=== PATIENT | male | born 1960 | race Caucasian/White ===

== ENCOUNTER 2017-02-11 17:28 | Emergency (ER) | payer BC ==
[2017-02-11] MEDS ORDERED: Morphine INJ* 4 MG/ML 1 ML SYRINGE IV ONE (19:02)
[2017-02-11] MEDS ORDERED: NS 0.9% 1000 ML* 2,000 ML IV ONE (19:02)
[2017-02-11] MEDS ORDERED: Ondansetron INJ* 2 MG/ML VIAL IV ONE (19:02)
[2017-02-11 19:21] LABS: Hematocrit 46 % (42-52); Hemoglobin 15.5 g/dl (14.0-18.0); Mean Corpuscular HGB Conc 34 g/dl (31-36); Mean Corpuscular Hemoglobin 31 pg (27-31); Mean Corpuscular Volume 93 fL (80-94); Mean Platelet Volume 9 um3 (7.4-10.4); Red Blood Count 4.99 10^6/ul (4.0-5.4); Red Cell Distribution Width 13 % (10.5-15); White Blood Count 9.6 10^3/ul (3.5-10.8)
[2017-02-11 19:32] LABS: Albumin 4.2 g/dL (3.2-5.2); BUN/Creatinine Ratio 17.6 (8-20); C Reactive Protein 2.45 mg/L (< 5.00); Calcium 9.3 mg/dL (8.6-10.3); EGFR African American 96.8 (>60); EGFR Non-African American 75.3 (>60); Globulin 3.2 g/dL (2-4); Magnesium 1.8 mg/dL (1.9-2.7); Potassium 3.9 mmol/L (3.5-5.0); Total Bilirubin 0.7 mg/dL (0.2-1.0); Total Protein 7.4 g/dL (6.4-8.9)
[2017-02-11] MEDS ORDERED: Iohexol 300* (CONTRAST) 10 ML SDV IV ONE (19:48)
--- NOTE | 2017-02-11 21:47 | RAD ---
Indication: Abdominal pain, appendicitis, status post sleeve gastrectomy. Contrast: Administered 102.0 ml of Contrast -- mgi/ml CT of the abdomen and pelvis was performed after oral and IV contrast administration. Coronal and sagittal reconstructed images were obtained. The lung bases demonstrate no pleural fluid, nodules or masses. Heart is of normal size without evidence of pericardial effusion. The liver is normal in size. There are no focal lesions or intrahepatic duct dilatation noted. The gallbladder is distended. No pericholecystic fluid or wall thickening is identified. The pancreas demonstrates no mass or pancreatic duct dilatation. The spleen is normal in size. Patient status post gastrectomy. No adrenal lesions are noted. The kidneys demonstrate symmetric nephrograms without focal lesions. No hydronephrosis is noted. No retroperitoneal lymphadenopathy is noted. No dilated small bowel are noted. There is contrast in the right colon with no evidence of bowel obstruction. There is focal wall thickening of the distal ileum. There is suggestion of mucosal edema in the possibility of inflammatory bowel disease should BE considered. A small amount of ascites is noted. No hernias are noted. The urinary bladder is otherwise unremarkable. The prostate and seminal vesicles are unremarkable. IMPRESSION: A SMALL AMOUNT OF ASCITES AND MESENTERIC EDEMA IS NOTED. THERE IS MUCOSAL THICKENING IN THE DISTAL ILEUM. THE POSSIBILITY OF INFLAMMATORY BOWEL DISEASE SHOULD BE CONSIDERED. OTHER CAUSES OF ILEITIS ARE NOT TOTALLY EXCLUDED. NO ABSCESS IS IDENTIFIED. APPENDIX IS NORMAL.
[2017-02-11] MEDS ORDERED: metroNIDAZOLE TAB* 250 MG PO ONE ×2 (22:03→22:07)
[2017-02-11] MEDS ORDERED: Ciprofloxacin TAB* 500 MG PO ONE ×2 (22:03→22:06)
--- NOTE | 2017-02-11 22:28 | ED ---
Christine Russ Alok, scribed for Cl Ramos MD on 02/11/17 at 1927 . Abdominal Pain/Male - HPI Summary HPI Summary: 57 y/o male presents to the ED for abd pain since 1430 today. Pt states that pain which began while at work intensified significantly while driving and was described as sharp located around the epigastric region. Pt states he attempted to dry heave but could not produce emesis. Pt also noted dizziness with accompanied visual changes, "seeing stars" while standing as well as subjective fever/chills. Currently, pt states that his abd pain is still present but has improved somewhat with rest. Pt notes lower back pain but is similar to baseline. Pt has has nasal congestion for the last week. Pt denies CP, SOB, tobacco use or any hx of abd surgery. Pt drinks ETOH rarely. - History of Current Complaint Chief Complaint: EDAbdPain Stated Complaint: ABD PAIN Time Seen by Provider: 02/11/17 18:46 Hx Obtained From: Patient Onset/Duration: Gradual Onset, Lasting Hours, Still Present Timing: Constant, Lasting Hours Severity Initially: Moderate Severity Currently: Moderate Pain Intensity: 6 Pain Scale Used: 0-10 Numeric Location: Epigastric Radiates: No Character: Sharp Aggravating Factor(s): Movement Alleviating Factor(s): Position Associated Signs And Symptoms: Positive: Fever, Dizzy, Back Pain, Nausea. Negative: Chest Pain - Allergies/Home Medications Allergies/Adverse Reactions: Allergies Allergy/AdvReac Type Severity Reaction Status Date / Time No Known Allergies Allergy Verified 02/11/17 17:41 PMH/Surg Hx/FS Hx/Imm Hx Cardiovascular History: Denies: Other Cardiovascular Problems/Disorders Respiratory History: Reports: Hx Sleep Apnea GI History: Denies: Other GI Disorders History: Reports: Other Problems/Disorders - prostate cancer Sensory History: Reports: Hx Contacts or Glasses Denies: Hx Hearing Aid Opthamlomology History: Reports: Hx Contacts or Glasses - Cancer History Cancer Type, Location and Year: prostate 2009 Hx Radiation Therapy: Yes - Surgical History Surgery Procedure, Year, and Place: TESTICULAR A CHILD, [facility] Hx Anesthesia Reactions: No - Immunization History Date of Tetanus Vaccine: utd Date of Influenza Vaccine: utd Infectious Disease History: No Infectious Disease History: Denies: Traveled Outside the [place] in Last 30 Days - Family History Known Family History: Positive: Other - No- Maligant hypothermia. No- Anestesia reaction - Social History Occupation: Employed Full-time Alcohol Use: Occasionally Substance Use Type: Reports: Marijuana Substance Use Comment - Amount & Last Used: within the week Smoking Status (MU): Former Smoker Have You Smoked in the Last Year: No Review of Systems Positive: Fever, Chills, Skin Diaphoresis Positive: Nasal Discharge Negative: Chest Pain Negative: Shortness Of Breath Positive: Abdominal Pain, Nausea Positive: Other - Lower back pain Neurological: Other - Dizziness All Other Systems Reviewed And Are Negative: Yes Physical Exam - Summary Physical Exam Summary: The patient is well-nourished in mild distress and in no acute pain. The skin is diaphoretic and warm to touch. Skin color reflects adequate perfusion. Decreased capillary refill. HEENT: The head is normocephalic and atraumatic. The pupils are equal and reactive. The conjunctivae are clear and without drainage. Eyes clear to sclera. Nares are patent and without drainage. Mouth reveals dry mucous membranes and the throat is without erythema and exudate. The external ears are intact. The ear canals are patent and without drainage. The tympanic membranes are intact. Neck is supple with full range of motion and non-tender. There are no carotid bruits. There is no neck vein distension. Respiratory: Chest is non-tender. Lungs are clear to auscultation and breath sounds are symmetrical and equal. Cardiovascular: Hear is regular rate and rhythm. There is no murmur or rub auscultated. There is no peripheral edema and pulses are symmetrical and equal. Abdomen: The abdomen is soft with right sided tenderness to palpation. There are hyperactive bowel sounds heard in all four quadrants and there is no organomegaly palpated. Musculoskeletal: There is no back pain noted. Extremities are non-tender with full range of motion. There is good capillary refill. There is no peripheral edema or calf tenderness elicited. Neurological: Patient is alert and oriented to person, place and time. The patient has symmetrical motor strength in all four extremities. Cranial nerves are grossly intact. Deep tendon reflexes are symmetrical and equal in all four extremities. Psychiatric: The patient has an appropriate affect and does not exhibit any anxiety or depression. Triage Information Reviewed: Yes Vital Signs On Initial Exam: Initial Vitals Temp Pulse Resp BP Pulse Ox 98.5 F 65 14 130/68 100 02/11/17 17:35 02/11/17 17:35 02/11/17 17:35 02/11/17 17:35 02/11/17 17:35 Vital Signs Reviewed: Yes Diagnostics - Vital Signs Vital Signs Temp Pulse Resp BP Pulse Ox 02/11/17 19:19 16 02/11/17 19:00 69 187/132 100 02/11/17 18:52 72 97 02/11/17 18:51 141/72 02/11/17 17:46 67 100 02/11/17 17:45 130/68 02/11/17 17:35 98.5 F 65 14 130/68 100 - Laboratory Lab Results: Lab Results 02/11/17 02/11/17 02/11/17 Range/Units 18:35 18:35 18:35 WBC 9.6 (3.5-10.8) 10^3/ul RBC 4.99 (4.0-5.4) 10^6/ul Hgb 15.5 (14.0-18.0) g/dl Hct 46 (42-52) % MCV 93 (80-94) fL MCH 31 (27-31) pg MCHC 34 (31-36) g/dl RDW 13 (10.5-15) % Plt Count 207 (150-450) 10^3/ul MPV 9 (7.4-10.4) um3 Neut % (Auto) 87.1 H (38-83) % Lymph % (Auto) 6.1 L (25-47) % [place] % (Auto) 5.8 (1-9) % Eos % (Auto) 0.4 (0-6) % Baso % (Auto) 0.6 (0-2) % Absolute Neuts (auto) 8.4 H (1.5-7.7) 10^3/ul Absolute Lymphs (auto) 0.6 L (1.0-4.8) 10^3/ul Absolute Monos (auto) 0.6 (0-0.8) 10^3/ul Absolute Eos (auto) 0 (0-0.6) 10^3/ul Absolute Basos (auto) 0.1 (0-0.2) 10^3/ul Absolute Nucleated RBC 0 10^3/ul Nucleated RBC % 0 Sodium 138 (133-145) mmol/L Potassium 3.9 (3.5-5.0) mmol/L Chloride 104 (101-111) mmol/L Carbon Dioxide 28 (22-32) mmol/L Anion Gap 6 (2-11) mmol/L BUN 18 (6-24) mg/dL Creatinine 1.02 (0.67-1.17) mg/dL Est GFR ( Amer) 96.8 (>60) Est GFR (Non-Af Amer) 75.3 (>60) BUN/Creatinine Ratio 17.6 (8-20) Glucose 143 H (70-100) mg/dL Lactic Acid 1.9 (0.5-2.0) mmol/L Calcium 9.3 (8.6-10.3) mg/dL Magnesium 1.8 L (1.9-2.7) mg/dL Total Bilirubin 0.70 (0.2-1.0) mg/dL AST 22 (13-39) U/L ALT 25 (7-52) U/L Alkaline Phosphatase 61 (34-104) U/L Troponin I 0.00 (<0.04) ng/mL C-Reactive Protein 2.45 (< 5.00) mg/L Total Protein 7.4 (6.4-8.9) g/dL Albumin 4.2 (3.2-5.2) g/dL Globulin 3.2 (2-4) g/dL Albumin/Globulin Ratio 1.3 (1-3) Amylase 57 (29-103) U/L Lipase 19 (11.0-82.0) U/L Result Diagrams: 02/11/17 18:35 02/11/17 18:35 Lab Statement: Any lab studies that have been ordered have been reviewed, and results considered in the medical decision making process. - CT Abd/Pel CT CT Interpretation: Positive (See Comments) - IMPRESSION: A SMALL AMOUNT OF ASCITES AND MESENTERIC EDEMA IS NOTED. THERE IS MUCOSAL THICKENING IN THE DISTAL ILEUM. THE POSSIBILITY OF INFLAMMATORY BOWEL DISEASE SHOULD BE CONSIDERED. OTHER CAUSES OF ILEITIS ARE NOT TOTALLY EXCLUDED. NO ABSCESS IS IDENTIFIED. APPENDIX IS NORMAL. CT Interpretation Completed By: Radiologist - EKG 1908 Cardiac Rate: NL - 67 bpm EKG Rhythm: Sinus Rhythm ST Segment: Normal EKG Interpretation: No STEMI Re-Evaluation - Re-Evaluation First Eval Re-Evaluation Time: 21:59 Abdominal Pain Fem Course/Dx - Course Course Of Treatment: CT abd/pelvis reveals ileitis. the pt will be strated on Flagyl 500 mg qid x 7 days and Cipro 500mg po bid x 7 days. pt was given Iv hydration and analgesia. pt felt better and will be discharged to home to follow up with Dr. Cevallos. - Diagnoses Differential Diagnosis/HQI/PQRI: Appendicitis, Bowel Obstruction, Diverticulitis , Gall Bladder Disease, Pancreatitis, Other - ileitis, complications from gastric bypass surgery Provider Diagnoses: Ileitis Discharge - Discharge Plan Condition: Stable Disposition: HOME Prescriptions: Ciprofloxacin TAB* [Cipro 500 MG TAB*] 500 mg PO BID #14 tab Metronidazole [Flagyl 500 MG TAB] 500 mg PO QID #28 tab Patient Education Materials: Capsule Endoscopy (GEN) Forms: *Work Release Referrals: Rajendra Cevallos MD [Primary Care Provider] - Additional Instructions: Please follow up with your primary care provider. The documentation as recorded by the Christine yoo Alok accurately reflects the service I personally performed and the decisions made by , Cl Ramos MD.
[2017-02-11 22:42] VITALS: BP 148/49
== END 2017-02-11 22:39 | disposition home or self-care (01) ==
LOC: ED 17:28
DX: K52.9 Noninfective gastroenteritis and colitis, unspecified (principal); M54.5 Low back pain; R50.9 Fever, unspecified; R42 Dizziness and giddiness; R11.0 Nausea
CPT/HCPCS: 36415; 74177; 80053; 82150; 83605; 83690; 83735; 84484; 85025; 86140; 93005; 96374; 96375; 99284; A9270-GY; J2270; J2405; Q9967

== ENCOUNTER 2023-01-11 13:31 | Observation (INO) ==
[2023-01-11 13:58] LABS: ABS Lymphocytes 0.9 10^3/ul (1.0-4.8); ABS Monocytes 0.4 10^3/ul (0-0.8); ABS Neutrophils 4.1 10^3/ul (1.5-7.7); Eosinophil % 0.8 %; Hematocrit 45 % (42-52); Lymphocyte % 16.8 %; Mean Corpuscular HGB Conc 34 g/dL (31-36); Mean Corpuscular Hemoglobin 31 pg (27-31); Mean Corpuscular Volume 93 fL (80-94); Mean Platelet Volume 8.3 fL (7.4-10.4); Platelet Count 239 10^3/uL (150-450); Red Blood Count 4.79 10^6 /uL (4.18-5.48); Red Cell Distribution Width 13 % (10-15); White Blood Count 5.5 10^3/uL (3.5-10.8)
[2023-01-11 14:05] LABS: INR 1.03 (0.88-1.18)
[2023-01-11] MEDS ORDERED: Adenosine 3 MG/ML 2 ml VIAL (6 mg) IV PUSH ONE ×3 (15:15→18:21)
[2023-01-11] MEDS ORDERED: Lactated Ringers 1000 ml BAG 1,000 ML IV ONE (15:16)
[2023-01-11 15:26] LABS: High Sensitivity Troponin 1 Hr 15 pg/mL (<20)
[2023-01-11] MEDS ORDERED: Adenosine 3 MG/ML 2 ml VIAL (6 mg) ONE ×2 (15:33→18:21)
[2023-01-11 15:46] LABS: Albumin 3.9 g/dL (3.2-5.2); Albumin/Globulin Ratio 1.6 (1-3); Calcium 9.6 mg/dL (8.6-10.3); Creatinine, Serum 0.92 mg/dL (0.67-1.17); Globulin 2.4 g/dL (2-4); Potassium 4.1 mmol/L (3.5-5.0); Total Bilirubin 0.5 mg/dL (0.2-1.0); Total Protein 6.3 g/dL (6.4-8.9); eGFR CKD-EPI 94.1 (>60)
[2023-01-11] MEDS ORDERED: Lactated Ringers 1000 ml BAG 1,000 ML IV SCH (19:00)
[2023-01-11 19:15] LABS: Magnesium 1.7 mg/dL (1.9-2.7)
[2023-01-11 19:31] LABS: TSH Ultra Thyroid Stim Horm 2.78 mcIU/mL (0.34-5.60)
[2023-01-11 19:33] LABS: Free T4 0.98 ng/dL (0.61-1.12)
[2023-01-11] MEDS ORDERED: Senna TAB 8.6 mg TAB PO PRN (20:32)
[2023-01-11] MEDS ORDERED: Magnesium Sulfate IV 3 GM in NS 0.9% 100 ml BAG 100 ML IVPB ONE (20:36)
[2023-01-11] MEDS ORDERED: Enoxaparin 40 MG/0.4 ML SYR SUBCUT SCH (21:00)
[2023-01-11 23:34] LABS: Urine Appearance Clear; Urine Bilirubin Negative (Negative); Urine Blood Negative (Negative); Urine Color Yellow; Urine Glucose Negative (Negative); Urine Ketones 1+ (Negative); Urine Nitrite Negative (Negative); Urine Protein Negative (Negative); Urine Specific Gravity 1.013 (1.002-1.030); Urine Urobilinogen Negative (Negative)
[2023-01-12 06:55] LABS: ALT 9 U/L (7-52); Albumin 2.6 g/dL (3.2-5.2); Albumin/Globulin Ratio 1.4 (1-3); Alkaline Phosphatase 40 U/L (35-149); Blood Urea Nitrogen 11 mg/dL (6-24); CO2 Carbon Dioxide 29 mmol/L (22-32); Calcium 7.3 mg/dL (8.6-10.3); Chloride 110 mmol/L (101-111); Creatinine, Serum 0.69 mg/dL (0.67-1.17); Globulin 1.9 g/dL (2-4); Glucose 72 mg/dL (70-100); Sodium 140 mmol/L (135-145); Total Protein 4.5 g/dL (6.4-8.9); eGFR CKD-EPI 104.6 (>60)
[2023-01-12 06:58] LABS: Anion Gap 1 mmol/L (2-11)
[2023-01-12 08:07] LABS: Magnesium 2.2 mg/dL (1.9-2.7)
[2023-01-12 09:57] LABS: Potassium Redraw 4.9 mmol/L (3.5-5.0)
[2023-01-12 10:52] LABS: Cholesterol 118 mg/dL; HDL Cholesterol 32.7 mg/dL; LDL Cholesterol 71 mg/dL; Triglycerides 74 mg/dL
[2023-01-12 14:00] VITALS: BP 121/70
== END 2023-01-12 13:46 | disposition home or self-care (01) ==
LOC: EDHOLD 13:31 → ED 13:31 → SUATTDRO 20:32 → EDHOLD 01-12 13:45
PROVIDERS: ADMIT Student in an Organized Health Care Education/Training Program; ATTEND Internal Medicine